=== PATIENT | female | born 1980 | race Caucasian/White ===

== ENCOUNTER 2017-07-02 09:45 | Emergency (ER) | payer OTHER ==
[~2017-07-02] VITALS: Ht 175.3 cm; Wt 72.6 kg
[2017-07-02] MEDS ORDERED: KETO10TA2 PO (17:10)
[2017-07-02] MEDS ORDERED: NORFLEX100MG PO (17:10)
[2017-07-02] MEDS ORDERED: MEDROLPACK PO (17:15)
== END 2017-07-02 18:04 | disposition home or self-care (01) ==
LOC: ER 09:45
DX: S33.5XXA Sprain of ligaments of lumbar spine, initial encounter (principal); M54.5 Low back pain; X50.3XXA Overexertion from repetitive movements, initial encounter; Y93.89 Activity, other specified; Y92.69 Other specified industrial and construction area as the place of occurrence of the external cause; Y99.8 Other external cause status